=== PATIENT | female | born 1970 | race Caucasian/White ===

== ENCOUNTER 2018-02-04 15:19 | Observation (INO) | payer SELFPAY ==
[~2018-02-04 15:19] MED LIST: ACE3 PO; ACE500 PO; ALB17R INH; ALB6.7R INH; ALBU2.5V36 INH; AMOX-559 PO; CEPH500C24 PO; CYCL10TA29 PO; DICL-195 PO; DIPH-740 PO; DOXY150T6 PO; GUAI120L3 PO; HYDR-2946 PO; HYDR-317 PO; HYDR-3250 PO; HYDR-4309 PO; IBU600 PO; IBUP-2704 PO; IBUP-56 PO; IBUP600T22 PO; IBUP800T37 PO; KET10 PO; LOR5 PO; LOR5/325 PO; OXYC-854 PO; PANT40SU3 PO; PER PO; PHEN120S16 PO; PRE10 PO; PRED20TA6 PO; PROM-110 PO; RIZA10TA20 PO; SLEEPING MEDICATION PO; TRA50 PO; TRAM-420 PO; [UNRECOGNIZED DRUG - CODE] MC
[2018-02-04] MEDS ORDERED: NS(*) 0.9% 1000 ML BAG 1,000 ML IV ONE (15:31)
--- NOTE | 2018-02-04 15:31 | ER Report ---
History and Physical Time Seen By MD: 15:19 Hx. of Stated Complaint: PT REPORTS SEVERE PELVIC PAIN ONSET 1 HOUR AGO (TIMMARK Mary ) HPI/ROS CHIEF COMPLAINT: lower abdominal pain HISTORY OF PRESENT ILLNESS: Pt here for evaluation of lower abdominal pain which started about 1 hour ago. Pt is sharp and crampy. + nausea and vomiting. had a bm today and was normal. Pt has been urinating more frequently but not sure if it hurts. Pt perimenapausal and had a period last month. Pt denies . no diarrhea. no fevers. no back pain. no chest pain. REVIEW OF SYSTEMS: Constitutional: No fever, no chills. Eyes: No discharge. ENT: No sore throat. Cardiovascular: No chest pain, no palpitations. Respiratory: No cough, no shortness of breath. Gastrointestinal: + abdominal pain, +nausea, + vomiting. Genitourinary: No hematuria, + frequency Musculoskeletal: No back pain. Skin: No rashes. Neurological: No headache. (HUMBLEELMERALEXIMARK Mary ) Allergies: Coded Allergies: aspirin (Verified Adverse Reaction, Mild, NOSEBLEEDS, 09/19/17) latex (Verified Adverse Reaction, Mild, 09/19/17) Uncoded Allergies: MUSHROOM (Allergy, Severe, SWELLING, RESP DISTRESS, 05/23/12) Home Meds Active Scripts Albuterol Sulfate 0.083% (ALBUTEROL SULFATE 0.083%) 2.5 Mg/3 Ml Vial.neb, 2.5 MG INH Q4H Y for WHEEZING, #1 BOX 0 Refills Prov:JACK GREY MD 09/20/17 Discontinued Reported Medications Pantoprazole Sodium (PROTONIX) 40 Mg Granpkt.dr, 40 MG PO PRN, PACK 01/15/17 Discontinued Scripts Guaifenesin/Codeine Phosphate (Codeine-Guaifen 10-100 mg/5 ml) 120 Ml Liquid, 5 ML PO Q6-8H Y for COUGH, #120 ML 0 Refills Prov:JACK GREY MD 09/20/17 Prednisone (PREDNISONE) 20 Mg Tablet, 40 MG PO QDAY for 5 Days, #10 TAB Prov:JACK GREY MD 09/20/17 Past Medical/Surgical History Pmhx: migraines, asthma, reflux, cholelithiasis, toe fracture, alcohol abuse. Pshx: right wrist surgery, C-sections. (MARK DUMONT DO) Reviewed Nurses Notes: Yes Old Medical Records Reviewed: Yes (MARK DUMONT DO) Hx Smoking: Yes Smoking Status: Former Smoker Exposure to Second Hand Smoke?: No Hx Substance Use Disorder: No Hx Alcohol Use: Yes (MARK DUMONT DO) Constitutional Vital Sign - Last 24 Hours 02/04/18 02/04/18 02/04/18 02/04/18 15:19 15:25 15:26 15:30 Temp 97.5 Pulse ??? 65 Resp 20 B/P (MAP) 86/59 (68) 86/59 97/50 (66) Pulse Ox 99 O2 Delivery Room Air 02/04/18 02/04/18 02/04/18 02/04/18 15:34 15:49 16:00 16:04 Pulse 69 76 96 Resp 19 23 B/P (MAP) 108/63 (78) Pulse Ox 97 98 02/04/18 02/04/18 02/04/18 02/04/18 16:19 16:30 16:34 16:49 Pulse 93 ??? 109 Resp 14 20 B/P (MAP) ???/??? (6955) Pulse Ox 95 94 02/04/18 02/04/18 02/04/18 02/04/18 17:00 17:04 17:09 17:24 Pulse 102 105 108 Resp 11 12 0 B/P (MAP) 114/52 (72) Pulse Ox 96 97 82 02/04/18 02/04/18 02/04/18 02/04/18 17:30 17:39 17:54 18:00 Pulse 105 103 Resp 13 15 B/P (MAP) 114/44 (67) 116/48 (70) Pulse Ox 86 98 02/04/18 02/04/18 02/04/18 02/04/18 18:09 18:24 18:30 18:33 Pulse 110 105 Resp 18 B/P (MAP) 120/64 (82) Pulse Ox 93 O2 Flow Rate 1.0 02/04/18 02/04/18 02/04/18 02/04/18 18:39 18:54 19:00 19:05 Pulse ??? 111 110 Resp 19 15 B/P (MAP) 131/72 (91) Pulse Ox 97 98 02/04/18 02/04/18 02/04/18 02/04/18 19:20 19:30 19:35 19:50 Pulse 115 116 113 Resp 24 17 23 B/P (MAP) 123/74 (90) Pulse Ox 96 93 94 02/04/18 02/04/18 02/04/18 20:00 20:05 20:20 Pulse 110 108 Resp 9 20 B/P (MAP) 122/64 (83) Pulse Ox 95 93 Intake and Output 02/04/18 02/04/18 02/05/18 15:00 23:00 07:00 Intake Total 1500 ml Output Total 25 ml Balance 1475 ml (COLLIN JONES MD) Physical Exam General Appearance: The patient is alert, has no immediate need for airway protection and no signs of toxicity. Eyes: Pupils equal and round no pallor or injection, EOMI ENT: no pharyngeal erythema or exudates, Mucous membranes are moist Respiratory: There are no retractions, lungs are clear to auscultation. Cardiovascular: Regular rate and rhythm. pulses are equal and symmetrical Gastrointestinal: Abdomen is soft but diffusely tender, no masses, decreased bowel sounds, = guarding, no rigidity or rebound Neurological: Cranial nerves II-XII grossly intact, no sensory or motor loss Skin: Warm and dry, no rashes. Musculoskeletal: Neck is supple non tender, no vertebral tenderness Extremities are nontender, non swollen and have full range of motion. DIFFERENTIAL DIAGNOSIS: After history and physical exam differential diagnosis was considered for psbo, kidney stone, cystitis, diverticultis, uti (LAURORA,MARK V DO) Medical Decision Making Data Points Result Diagram: 02/04/18 1528 02/04/18 1528 Laboratory Hematology Test 02/04/18 15:28 02/04/18 15:52 02/04/18 17:17 Red Blood Count 5.14 M/uL (4.17-5.56) Mean Corpuscular Volume 85.3 fL (80.0-96.0) Mean Corpuscular Hemoglobin 29.5 pg (26.0-33.0) Mean Corpuscular Hemoglobin Concent 34.7 g/dL (32.0-36.0) Red Cell Distribution Width 13.7 % (11.5-14.5) Mean Platelet Volume 8.7 fL (7.2-11.1) Neutrophils (%) (Auto) 52.1 % (39.4-72.5) Lymphocytes (%) (Auto) 35.3 % (17.6-49.6) Monocytes (%) (Auto) 8.8 % (4.1-12.4) Eosinophils (%) (Auto) 3.3 % (0.4-6.7) Basophils (%) (Auto) 0.5 % (0.3-1.4) Nucleated RBC Relative Count (auto) 0.0 /100WBC Neutrophils # (Auto) 4.9 K/uL (2.0-7.4) Lymphocytes # (Auto) 3.3 K/uL (1.3-3.6) Monocytes # (Auto) 0.8 K/uL (0.3-1.0) Eosinophils # (Auto) 0.3 K/uL (0.0-0.5) Basophils # (Auto) 0.0 K/uL (0.0-0.1) Nucleated RBC Absolute Count (auto) 0.00 K/uL Sodium Level 139 mmol/L (137-145) Potassium Level 3.3 mmol/L (3.5-5.0) Chloride Level 97 mmol/L (98-107) Carbon Dioxide Level 28 mmol/L (22-31) Blood Urea Nitrogen 18 mg/dl (7-18) Creatinine 0.70 mg/dl (0.52-1.04) Glomerular Filtration Rate Calc > 60.0 Random Glucose 123 mg/dl (75-110) Calcium Level 9.7 mg/dl (8.4-10.2) Total Bilirubin 0.5 mg/dl (0.2-1.3) Aspartate Amino Transf (AST/SGOT) 16 U/L (0-35) Alanine Aminotransferase (ALT/SGPT) 30 U/L (0-56) Alkaline Phosphatase 100 U/L (0-126) Total Protein 7.8 gm/dl (6.3-8.2) Albumin 4.2 g/dl (3.5-5.0) Lipase 92 U/L (23-300) Human Chorionic Gonadotropin, Qual Negative (NEGATIVE) Urine Color Yellow Urine Clarity Slightly-cloudy Urine pH 7.0 pH (4.8-9.5) Urine Specific [place]more 1.026 Urine Protein Negative mg/dL (NEGATIVE) Urine Glucose (UA) Negative mg/dL (NEGATIVE) Urine Ketones Negative mg/dL (NEGATIVE) Urine Blood Negative (NEGATIVE) Urine Nitrite Negative (NEGATIVE) Urine Bilirubin Negative (NEGATIVE) Urine Urobilinogen 2.0 mg/dL (0.2-1.9) Urine Leukocyte Esterase Negative (NEGATIVE) Urine RBC 1 /HPF (0-2/HPF) Urine WBC <1 /HPF (0-5/HPF) Urine Squamous Epithelial Cells Many /LPF (NONE-FEW) Urine Bacteria Negative /HPF (NONE-FEW) Urine Mucus Few /HPF (NONE-FEW) Chemistry Test 02/04/18 15:28 02/04/18 15:52 02/04/18 17:17 White Blood Count 9.4 k/uL (4.5-11.0) Red Blood Count 5.14 M/uL (4.17-5.56) Hemoglobin 15.2 g/dL (12.0-16.0) Hematocrit 43.8 % (34.0-47.0) Mean Corpuscular Volume 85.3 fL (80.0-96.0) Mean Corpuscular Hemoglobin 29.5 pg (26.0-33.0) Mean Corpuscular Hemoglobin Concent 34.7 g/dL (32.0-36.0) Red Cell Distribution Width 13.7 % (11.5-14.5) Platelet Count 246 K/uL (150-450) Mean Platelet Volume 8.7 fL (7.2-11.1) Neutrophils (%) (Auto) 52.1 % (39.4-72.5) Lymphocytes (%) (Auto) 35.3 % (17.6-49.6) Monocytes (%) (Auto) 8.8 % (4.1-12.4) Eosinophils (%) (Auto) 3.3 % (0.4-6.7) Basophils (%) (Auto) 0.5 % (0.3-1.4) Nucleated RBC Relative Count (auto) 0.0 /100WBC Neutrophils # (Auto) 4.9 K/uL (2.0-7.4) Lymphocytes # (Auto) 3.3 K/uL (1.3-3.6) Monocytes # (Auto) 0.8 K/uL (0.3-1.0) Eosinophils # (Auto) 0.3 K/uL (0.0-0.5) Basophils # (Auto) 0.0 K/uL (0.0-0.1) Nucleated RBC Absolute Count (auto) 0.00 K/uL Glomerular Filtration Rate Calc > 60.0 Calcium Level 9.7 mg/dl (8.4-10.2) Total Bilirubin 0.5 mg/dl (0.2-1.3) Aspartate Amino Transf (AST/SGOT) 16 U/L (0-35) Alanine Aminotransferase (ALT/SGPT) 30 U/L (0-56) Alkaline Phosphatase 100 U/L (0-126) Total Protein 7.8 gm/dl (6.3-8.2) Albumin 4.2 g/dl (3.5-5.0) Lipase 92 U/L (23-300) Human Chorionic Gonadotropin, Qual Negative (NEGATIVE) Urine Color Yellow Urine Clarity Slightly-cloudy Urine pH 7.0 pH (4.8-9.5) Urine Specific Wetmore 1.026 Urine Protein Negative mg/dL (NEGATIVE) Urine Glucose (UA) Negative mg/dL (NEGATIVE) Urine Ketones Negative mg/dL (NEGATIVE) Urine Blood Negative (NEGATIVE) Urine Nitrite Negative (NEGATIVE) Urine Bilirubin Negative (NEGATIVE) Urine Urobilinogen 2.0 mg/dL (0.2-1.9) Urine Leukocyte Esterase Negative (NEGATIVE) Urine RBC 1 /HPF (0-2/HPF) Urine WBC <1 /HPF (0-5/HPF) Urine Squamous Epithelial Cells Many /LPF (NONE-FEW) Urine Bacteria Negative /HPF (NONE-FEW) Urine Mucus Few /HPF (NONE-FEW) Urinalysis Test 02/04/18 15:52 Urine Color Yellow Urine Clarity Slightly-cloudy Urine pH 7.0 pH (4.8-9.5) Urine Specific Wetmore 1.026 Urine Protein Negative mg/dL (NEGATIVE) Urine Glucose (UA) Negative mg/dL (NEGATIVE) Urine Ketones Negative mg/dL (NEGATIVE) Urine Blood Negative (NEGATIVE) Urine Nitrite Negative (NEGATIVE) Urine Bilirubin Negative (NEGATIVE) Urine Urobilinogen 2.0 mg/dL (0.2-1.9) Urine Leukocyte Esterase Negative (NEGATIVE) Urine RBC 1 /HPF (0-2/HPF) Urine WBC <1 /HPF (0-5/HPF) Urine Squamous Epithelial Cells Many /LPF (NONE-FEW) Urine Bacteria Negative /HPF (NONE-FEW) Urine Mucus Few /HPF (NONE-FEW) (COLLIN JONES MD) Microbiology Microbiology Date/Time Source Procedure Growth Status 02/04/18 17:17 Cervical Wet Prep - Final Complete (COLLIN JONES MD) EKG/Imaging Imaging EXAMINATION: Transvaginal pelvic ultrasound with duplex Doppler evaluation 5:20 PM HISTORY: LLQ pain;R/o torsion.; LMP: 01/07/2018 COMPARISON STUDIES: none. FINDINGS: Uterus: 8.5 x 4.9 x 4.1 cm Myometrium: negative Endometrium: Negative. 4 mm thickness. Cervix: negative Ovaries: right ovary 3.5 x 2.8 x 2.9 cm, left ovary but I think is probably the left ovary on the images obtained measures 3.5 x 2.7 x 1.9 cm, both normal Blood flow is documented in each ovary by Doppler ultrasound. On the left there is only color flow image showing flow but no B-mode tracing within the heart of the ovary but only along the periphery Adnexa: Fluid-filled tubular structure immediately adjacent to the left ovary corresponding with that shown by the CT. With color Doppler there is flow along the margins of this although was not clearly a complete hypervascular inflamed tube. Slight adnexal varices are demonstrated on the right. Free pelvic fluid: None significant IMPRESSION: 1. Dilated fallopian tube on the left with vascular flow in the wall raising concern for pyosalpinx. If the patient does not have fever or white count this may be a noninfected hydrosalpinx. 2. Color Doppler does appear to show flow within the left ovary which is not enlarged although a good B-mode tracing of flow in the central portion of the ovary was not acquired. Report Dictated By: Jesus Aguiar MD at 02/04/2018 6:31 PM (COLLIN JONES MD) ED Course/Re-evaluation Clinical Indication for ER IV: IV Access ED Course Check labs, ct and give fluids and fentanyl 02/04/2018 5:10:12 pm Pts labs stable. Pts CT shows possible TOA. will perform a pelvic after medicating since pts pain is returning. Pt denies any hx of pelvic infections PELVIC: skant dark bloody mucus in vault; Neg CMT, + Left adenxa tenderness, Neg right adnexa tenderness; no purulant discharge from os (MARK DUMONT DO) Clinical Indication for ER IV: Hydration, IV Access ED Course I assumed care of this patient from Dr. Dumont at shift change. Left lower abdominal pain with CT scan positive for thickened left fallopian tube concerning for tuboovarian abscess. Sudden onset makes this worrisome for torsion. Ultrasound being done during signout. 02/04/2018 7:00:26 pm: Ultrasound report is available as noted above. After receiving this report, I called and spoke with Dr. Shah, [employer], and discussed these results with her. The patient is still in quite a bit of pain, pain is increased now and she is tachycardic so a dose of Dilaudid 1 mg IV was given[address] Dr[address] Shah has accepted the patient for admission. She came to the ER to evaluate the patient. Decision to Disposition Date: Feb 04, 2018 Decision to Disposition Time: 19:25 (COLLIN JONES MD) Depart Departure Latest Vital Signs Vital Signs Date Time Temp Pulse Resp B/P (MAP) Pulse Ox O2 Delivery O2 Flow Rate FiO2 02/04/18 20:20 108 20 93 02/04/18 20:00 122/64 (83) 02/04/18 18:33 1.0 02/04/18 15:26 97.5 Room Air (COLLIN JONES MD) Impression: Primary Impression: Abdominal pain Condition: Condition Unchanged Disposition: Admitted from ER Referrals: TITI MATSON PA-C (PCP) Problem Qualifiers Primary Impression: Abdominal pain Abdominal location: lower abdomen, unspecified Qualified Codes: R10.30 - Lower abdominal pain, unspecified MARK DUMONT DO Feb 04, 2018 15:31 COLLIN JONES MD Feb 04, 2018 18:07
[2018-02-04] MEDS ORDERED: ONDANSETRON 4 MG/2 ML VIAL IVP ONE (15:35)
[2018-02-04] MEDS ORDERED: fentaNYL CITR 100 MCG/2 ML AMP IVP ONE ×2 (15:35→17:05)
[2018-02-04 15:46] LABS: PLATELET COUNT, AUTOMATED 246 K/uL (150-450)
[2018-02-04] MEDS ORDERED: IOPAMIDOL 76% 75 ML INFUS BTL 75 ML ONE (15:47)
--- NOTE | 2018-02-04 17:04 | RADIOLOGY IMAGING REPORT ---
FACILITY: [facility] - [place] PATIENT NAME: Mary Willis : 1970 MR: [id number] V: [id number] EXAM DATE: ORDERING PHYSICIAN: MARK DUMONT TECHNOLOGIST: Location: [facility] Patient: Mary Willis : 1970 Visit/Account:[id number] Date of Sevice: 02/04/2018 EXAMINATION: CT Abdomen and Pelvis With Contrast 02/04/2018 3:31 PM HISTORY: lower abdominal pain/vomiting TECHNIQUE: Spiral scan was through the abdomen and pelvis during injection of nonionic iodinated in travenous contrast. Contrast: 75 mL of IV Isovue 370. One of the following dose optimization techniques was utilized in the performance of this exam: Autom ated exposure control; adjustment of the mA and/or kV according to the patient's size; or use of an i terative reconstruction technique. Specific details can be referenced in the facility's radiology C T exam operational policy. COMPARISON STUDIES: 05/19/2008. FINDINGS: Liver / biliary: Prior cholecystectomy. Pancreas: negative Spleen: negative Adrenal glands: negative Kidneys / retroperitoneum: negative Pelvic structures: Left lobe into this dilated nearly 3 cm and somewhat thick-walled. Left ovary i s unremarkable. No right adnexal pathology. Minimal free fluid in the cul-de-sac. Bowel / peritoneum / mesenteries: Mild diverticulosis of the distal colon. No acute focal inflammatio n. Normal appendix. Vessels: negative Musculoskeletal / Body wall: Sacroiliitis. Small sclerotic focus in the posterior right iliac bone wa s not evident previously but is still likely an incidental bone island. Incidental partial spina bifi da occulta at S1. Lymph node assessment: negative Lower chest: negative IMPRESSION: 1. Dilated left fallopian tube with thick wall suspicious for TOA. 2. No other significant acute finding. Report Dictated By: Jesus Aguiar MD at 02/04/2018 4:51 PM Report E-Signed By: Jesus Aguiar MD at 02/04/2018 4:59 PM WSN:[id number]
[2018-02-04] MEDS ORDERED: NS(*) 0.9% 500 ML BAG 500 ML IV ONE (17:30)
--- NOTE | 2018-02-04 18:45 | RADIOLOGY IMAGING REPORT ---
FACILITY: [facility] - [place] PATIENT NAME: Mary Willis : 1970 MR: [id number] V: [id number] EXAM DATE: ORDERING PHYSICIAN: MARK DUMONT TECHNOLOGIST: Location: [facility] Patient: Mary Willis : 1970 Visit/Account:[id number] Date of Sevice: 02/04/2018 EXAMINATION: Transvaginal pelvic ultrasound with duplex Doppler evaluation 02/04/2018 5:20 PM HISTORY: LLQ pain;R/o torsion.; LMP: 01/07/2018 COMPARISON STUDIES: none. FINDINGS: Uterus: 8.5 x 4.9 x 4.1 cm Myometrium: negative Endometrium: Negative. 4 mm thickness. Cervix: negative Ovaries: right ovary 3.5 x 2.8 x 2.9 cm, left ovary but I think is probably the left ovary on the calli ges obtained measures 3.5 x 2.7 x 1.9 cm, both normal Blood flow is documented in each ovary by Doppler ultrasound. On the left there is only color flow im age showing flow but no B-mode tracing within the heart of the ovary but only along the periphery Adnexa: Fluid-filled tubular structure immediately adjacent to the left ovary corresponding with that shown by the CT. With color Doppler there is flow along the margins of this although was not clearly a complete hypervascular inflamed tube. Slight adnexal varices are demonstrated on the right. Free pelvic fluid: None significant IMPRESSION: 1. Dilated fallopian tube on the left with vascular flow in the wall raising concern for pyosalpinx. If the patient does not have fever or white count this may be a noninfected hydrosalpinx. 2. Color Doppler does appear to show flow within the left ovary which is not enlarged although a good B-mode tracing of flow in the central portion of the ovary was not acquired. Report Dictated By: Jesus Aguiar MD at 02/04/2018 6:31 PM Report E-Signed By: Jesus Aguiar MD at 02/04/2018 6:41 PM WSN:[id number]
[2018-02-04] MEDS ORDERED: HYDROmorphone* 1 MG/ML 1 MG/ML ML IVP ONE (19:10)
--- NOTE | 2018-02-04 20:23 | History & Physical ---
History of Present Illness Age of Patient: 47 : 2 Para or TPAL: 2 Chief Complaint sudden onset lower abdominal pain at approximately 2pm today History of Present Illness Mrs. Willis is a 47yo , LMP 12/2017, unsure date, urine hcg negative, who presents to ED with complaint of acute onset lower abdominal pain at 2PM today. She reports she was sitting waiting for her son's school bus, when she suddenly had midline pelvic pain in the area of her mons-pubis. She reports that the pain was sharp in nature and 10/10 on a one to 10 scale. She reports that the pain continued and she thought that urinating might help. She tried this, and was able to urinate, but the pain persisted. She then had an episode of nausea and emesis. She called her and asked him to bring her to the ER for evaluation. Mrs. Willis reports she is and monogamous. She has no known history of STIs. She has not had routine gynecologic care, cannot recall her last cervical cancer evaluation, but does not have history of abnormal paps. She denies vaginal bleeding or discharge. She denies fevers/chills. She reports having a normal bowel movement today and she is passing gas without difficulty. Mrs. Goyal has had two deliveries. She has had a cholecystectomy. She has had no other surgeries. History Obstetrical History: FT C/S x 2, uncomplicated pregnancies Past Medical History: Migraine R wrist surgery obesity Allergies: Coded Allergies: aspirin (Verified Adverse Reaction, Mild, NOSEBLEEDS, 09/19/17) latex (Verified Adverse Reaction, Mild, 09/19/17) Uncoded Allergies: MUSHROOM (Allergy, Severe, SWELLING, RESP DISTRESS, 05/23/12) Social History: , monogamous. Has 15yo child. Med Rec Home Meds Active Scripts Albuterol Sulfate 0.083% (ALBUTEROL SULFATE 0.083%) 2.5 Mg/3 Ml Vial.neb, 2.5 MG INH Q4H Y for WHEEZING, #1 BOX 0 Refills Prov:JACK GREY MD 09/20/17 Discontinued Reported Medications Pantoprazole Sodium (PROTONIX) 40 Mg Granpkt.dr, 40 MG PO PRN, PACK 01/15/17 Discontinued Scripts Guaifenesin/Codeine Phosphate (Codeine-Guaifen 10-100 mg/5 ml) 120 Ml Liquid, 5 ML PO Q6-8H Y for COUGH, #120 ML 0 Refills Prov:JACK GREY MD 09/20/17 Prednisone (PREDNISONE) 20 Mg Tablet, 40 MG PO QDAY for 5 Days, #10 TAB Prov:JACK GREY MD 09/20/17 Review of Systems Constitutional: No Fever, No Weight Loss, No Weight Gain, No Chills, No Night Sweats, No Other Neurological: No Syncope, No Confusion, No Weakness, No Dizziness, No Slurred Speech, No Other Eyes: No Vision Change, No Loss of Vision, No Photophobia, No Other ENT: No Hearing Loss, No Sinus Congestion, No Sore Throat, No Ear Ache, No Tinnitus, No Other Cardiovascular: No Chest Pain, No Palpitations, No Orthostatic Hypotension, No Other Respiratory: No Shortness of Breath, No Cough, No Wheezing, No Other Gastrointestinal: Nausea, Vomiting, Abdominal Pain (lower abdominal pain) Genitourinary: No Dysuria, No Hematuria, No Urinary Incontinence, No Other Musculoskeletal: No Pain, No Sprain, No Strain, No Impaired Mobility, No Other Psychiatric: No Depression, No Anxiety, No Other Exam General Exam Vital Signs Vital Signs Date Time Temp Pulse Resp B/P (MAP) Pulse Ox O2 Delivery O2 Flow Rate FiO2 02/04/18 19:00 131/72 (91) 02/04/18 18:54 111 19 97 02/04/18 18:33 1.0 02/04/18 15:26 97.5 Room Air General Apperance: Alert/Awake/No Acute Distress (sitting up, appears uncomfortable) Neuro: No Gross deficits Eyes: Normal Extraocular Movement & Vison Cardiovascular: Regular Rate and Rhythm Respiratory: Clear to Auscultation Abdomen: Soft, Non-Tender, Non-Distended (no rebound no gaurding) Extremities: No Cyanosis,Clubbing or Edema Integumentary: Skin Intact without Lesions or Rash Psychological: Alert & Oriented X3, Appropriate Mood & Affect Medical Decision Making Data Points Result Diagram: 02/04/18 1528 02/04/18 1528 test negative Imaging Ultrasound/Imaging Ovaries appear normal bilaterally, no enlargement, mass or obvious edema. L hydrosalpinx vs. pyosalpinx. Vascular flow demonstrated to both ovaries. Pre-Admit Course ED Medication Dilaudid Medical Record Review: Yes VTE Prophylasis: Adult Deep Vein Thrombosis/Pulmonary: No Pharmacological Contraindicati: Surgical Contraindication Mechanical Contraindications: Pt at Low Risk for VTE Assessment and Plan Problems: (1) Abdominal pain Status: Acute Assessment & Plan: 47yo who presents with acute onset lower abdominal pain , nausea and emesis. No fever, normal WBC, no e/o cystitis or nephrolithiasis. Only finding on imaging is dilated L fallopian tube -- hydro vs. pyosalpinx. No clinical evidence of PID -- no purulent cervical discharge, no CMT, no elevation in WBC. Genital cultures pending. Abdomen is mildly tender, no gaurding, no rebound. Imaging not consistent with adnexal torsion, good blood flow both ovaries. Given patient's level of pain, opt to admit for observation , pain management, re-imaging of ovaries with ultrasound. Discussed the possibility of ovarian torsion and possibility of laparoscopy with the patient and her , should her clinical picture become concerning for torsion. All questions answered. Problem Qualifiers (1) Abdominal pain: Abdominal location: lower abdomen, unspecified Qualified Codes: R10.30 - Lower abdominal pain, unspecified ZAN KELLEY MD Feb 04, 2018 20:22
[2018-02-04] MEDS ORDERED: ONDANSETRON 4 MG/2 ML VIAL IVP PRN (20:25)
[2018-02-04] MEDS ORDERED: FLUSH 10 ML SYR IVP PRN (20:25)
[2018-02-04] MEDS ORDERED: LIDOCAINE/SOD BICARB 8.4% SYR SC PRN (20:25)
[2018-02-04] MEDS ORDERED: HYDROmorphone HCL 2 MG/ML SDV IVP PRN (20:25)
[2018-02-04] MEDS ORDERED: KETOROLAC 30 MG/ML VIAL IVP ONE (20:35)
[2018-02-04] MEDS ORDERED: NALOXONE HCL 0.4 MG/ML VIAL IVP ONE (20:40)
[2018-02-04 20:50] VITALS: BP 122/61
[2018-02-04] MEDS ORDERED: POTASSIUM CHL 20 MEQ TABCR PO ONE (20:50)
[2018-02-04] MEDS: DLR(*) 1000 ML BAG 1,000 ML IV SCH (21:21)
[2018-02-05 03:35] VITALS: BP 99/58
[2018-02-05] MEDS: KETOROLAC 15 MG/ML VIAL IVP PRN ×4 (04:01→22:42)
[2018-02-05] MEDS ORDERED: IBUP800T37 PO (04:10)
[2018-02-05] MEDS ORDERED: PSEU120T69 PO (04:11)
[2018-02-05 04:41] LABS: PLATELET COUNT, AUTOMATED 187 K/uL (150-450)
[2018-02-05 05:20] VITALS: BP 109/56
[2018-02-05] MEDS: DLR(*) 1000 ML BAG 1,000 ML IV SCH ×2 (06:37→16:13)
[2018-02-05 08:04] VITALS: BP 109/59
[2018-02-05] MEDS: PANTOPRAZOLE SOD 40 MG TABEC PO SCH (08:44)
--- NOTE | 2018-02-05 10:27 | OB/GYN Progress Note ---
OB Subjective Progress Notes Subjective Mrs. Goyal reports she slept well all night. She received only toradol overnight, no further dilaudid, and did well. Her pain remains at 5-6/10 and is diffuse lower abdominal pain. She reports she has had no further nausea/emesis. She denies fever/chills. She is voiding and passing flatus without difficulty. On further questioning she reports that she has had a brownish vaginal discharge for the past few months, no odor, continuous. GI: POS Flatus, NEG Nausea, NEG Vomiting, NEG Bowel Movement : Voiding Well Pain: Moderate, Using IV Pain Meds Neurological: No Headache, No Other OB Objective Physical Exam Vital Signs Date Time Temp Pulse Resp B/P (MAP) Pulse Ox O2 Delivery O2 Flow Rate FiO2 02/05/18 08:04 97.6 70 17 109/59 (76) 94 Room Air 02/05/18 06:40 0.5 Intake and Output 02/06/18 07:00 # Voids 1 General Appearance: Alert/Awake/No Acute Distress Neurological: No Gross deficits Eyes: Normal Extraocular Movement & Vison Cardiovascular: Regular Rate and Rhythm Respiratory: Clear to Auscultation (soft, good bowel sounds, diffusely tender in lower abdomen, no rebound or gaurding) : Other (bimanual exam reveals tender uterus and adnexa, L>R) Extremities: No Cyanosis,Clubbing or Edema Integumentary: Skin Intact without Lesions or Rash Psychological: Alert & Oriented X3, Appropriate Mood & Affect Result Diagram: 02/05/18 04302/05/18 043 Assessment and Plan Problems: (1) Abdominal pain Status: Acute Assessment & Plan: 47yo HOD 1 who presented with acute onset lower abdominal pain, nausea and emesis. No fever, normal WBC, no e/o cystitis or nephrolithiasis. Only finding on imaging was dilated L fallopian tube -- hydro vs. pyosalpinx. Repeat ultrasound this am shows good blood flow (arterial and vascular) in both ovaries, and again concern for L pyosalpinx. Pelvic exam this morning significant for tenderness -- mild CMT. Given pelvic pain, tenderness on exam, and finding of pyosalpinx on ultrasound will treat for presumptive PID. Favor parenteral treatment given concern for pyosalpinx and patient's pain level on presentation. All questions were answered and diagnosis discussed in detail with patient and her . (2) Pelvic inflammatory disease, female Status: Acute Assessment & Plan: 47yo HOD 1 who presented with acute onset lower abdominal pain, nausea and emesis. No fever, normal WBC, no e/o cystitis or nephrolithiasis. Only finding on imaging was dilated L fallopian tube -- hydro vs. pyosalpinx. Repeat ultrasound this am shows good blood flow (arterial and vascular) in both ovaries, and again concern for L pyosalpinx. Pelvic exam this morning significant for tenderness -- mild CMT. Given pelvic pain, tenderness on exam, and finding of pyosalpinx on ultrasound will treat for presumptive PID. Favor parenteral treatment given concern for pyosalpinx and patient's pain level on presentation. All questions were answered and diagnosis discussed in detail with patient and her . -cefoxitin 2g IV Q6 -doxycycline 100mg po bid -flagyl 500mg po tid given concern for pyosalpinx -continue pain management with toradol, dilaudid for breakthrough -may have regular diet Problem Qualifiers (1) Abdominal pain: Abdominal location: lower abdomen, unspecified Qualified Codes: R10.30 - Lower abdominal pain, unspecified ZAN KELLEY MD Feb 05, 2018 10:27
--- NOTE | 2018-02-05 10:29 | RADIOLOGY IMAGING REPORT ---
[place] [facility] [place] NAME[place] Mary Willis : 1970 MR: [id number] V: [id number] EXAM DATE: ORDERING PHYSICIAN: ZAN KELLEY TECHNOLOGIST: Location: [facility] [place] Patient: Mary Willis : 1970 Visit/Account:[id number] Date of Sevice: 02/05/2018 PELVIC HISTORY: pelvic pain, L hydrosalpinx EXAMINATION: Transabdominal and transvaginal pelvic ultrasound with duplex Doppler evaluation. HISTORY: Left lower quadrant pain COMPARISON: None. FINDINGS: Uterus: 8.5 x 4.9 x 4.1 cm Myometrium: negative Endometrium: Endometrium measures approximately 1 mm in greatest thickness. No fluid. No endometrial mass lesion. Cervix: negative Ovaries: Right ovary measures 3.1 x 2.7 x 2.7 cm in size. No right adnexal mass lesion. Left ovary measures 3.1 x 1.7 x 2.3 cm. There is a complex tubular fluid-filled structure in the left adnexa. This is consistent with a hydrosalpinx. Hydrosalpinx is not excluded. Blood flow is documented in each ovary by duplex Doppler ultrasound. Adnexa: negative Free pelvic fluid: Mild amount of fluid within the pelvis. IMPRESSION: 1. No significant interval change in appearance the ultrasound when compared to the previous day's st ud. What appears to be a dilated left fallopian tube identified. Hydrosalpinx suggested. Pyosalpinx not excluded. Recommend clinical correlation and appropriate follow-up Report Dictated By: Andrez Chong MD at 02/05/2018 10:16 AM Report E-Signed By: Andrez Chong MD at 02/05/2018 10:25 AM WSN:[id number]
[2018-02-05] MEDS: DOXYCYCLINE HYCL 100 MG TAB PO SCH ×2 (11:17→20:45)
[2018-02-05] MEDS: METRONIDAZOLE 500 MG TABLET PO SCH ×3 (11:17→20:45)
[2018-02-05] MEDS: NS 0.9% IVPB SCH ×2 (11:34→17:25)
[2018-02-05] MEDS: CEFOXITIN SOD IVPB SCH ×2 (11:34→17:25)
[2018-02-05] MEDS ORDERED: cefOXitin/DEX(*) 2GM/50ML PREM 50 ML IVPB SCH (12:00)
[2018-02-05 12:38] VITALS: BP 114/63
[2018-02-05 19:20] VITALS: BP 108/72
[2018-02-05 22:30] VITALS: BP 106/58
[2018-02-06] MEDS ORDERED: DOXYCYCLINE HYCL 100 MG TAB PO SCH ×2
[2018-02-06] MEDS ORDERED: METRONIDAZOLE 500 MG TABLET PO SCH ×2
[2018-02-06] MEDS: CEFOXITIN SOD IVPB SCH ×2 (00:30→05:50)
[2018-02-06] MEDS: NS 0.9% IVPB SCH ×2 (00:30→05:50)
[2018-02-06] MEDS: DLR(*) 1000 ML BAG 1,000 ML IV SCH (03:10)
[2018-02-06 05:45] VITALS: BP 106/66
[2018-02-06 07:05] VITALS: BP 115/68
[2018-02-06] MEDS: PANTOPRAZOLE SOD 40 MG TABEC PO SCH (09:00)
[2018-02-06] MEDS: METRONIDAZOLE 500 MG TABLET PO SCH (09:00)
[2018-02-06] MEDS: DOXYCYCLINE HYCL 100 MG TAB PO SCH (09:00)
[2018-02-06 09:30] VITALS: BP 115/67
[2018-02-06] MEDS ORDERED: DOXY-179 PO (09:36)
[2018-02-06] MEDS ORDERED: METR-159 PO (09:36)
--- NOTE | 2018-02-06 09:55 | OB/GYN Progress Note ---
OB Subjective Progress Notes Subjective Ms. Willis reports that her pain has improved significantly. She denies fevers/chills, she denies SOB/CP. She has no other complaints. GI: POS Flatus, POS Bowel Movement, NEG Nausea, NEG Vomiting : Voiding Well Pain: Mild, Tolerating PO Pain Meds, Using IV Pain Meds Neurological: No Headache, No Other Eyes: No Visual Disturbances OB Objective Physical Exam Vital Signs Date Time Temp Pulse Resp B/P (MAP) Pulse Ox O2 Delivery O2 Flow Rate FiO2 02/06/18 07:35 96 02/06/18 07:05 98.0 67 16 115/68 (84) Nasal Cannula 0.5 General Appearance: Alert/Awake/No Acute Distress Neurological: No Gross deficits Eyes: Normal Extraocular Movement & Vison Cardiovascular: Regular Rate and Rhythm Respiratory: Clear to Auscultation (soft, good bowel sounds, diffusely tender in lower abdomen, no rebound or gaurding) : Other (bimanual exam reveals tender uterus and adnexa, L>R) Extremities: No Cyanosis,Clubbing or Edema Integumentary: Skin Intact without Lesions or Rash Psychological: Alert & Oriented X3, Appropriate Mood & Affect Result Diagram: 02/05/18 0432 02/05/18 043 Assessment and Plan Problems: (1) Abdominal pain Status: Acute Assessment & Plan: 47yo HOD 2 who presented with acute onset lower abdominal pain, nausea and emesis. No fever, normal WBC, no e/o cystitis or nephrolithiasis. Only finding on imaging was dilated L fallopian tube -- hydro vs. pyosalpinx. Repeat ultrasound showed good blood flow (arterial and vascular) in both ovaries, again concerns for pyosalpinx. Patient treated for presumptive PID. Symptoms improved significantly today. (2) Pelvic inflammatory disease, female Status: Acute Assessment & Plan: 47yo HOD 2 who presented with acute onset lower abdominal pain, nausea and emesis. No fever, normal WBC, no e/o cystitis or nephrolithiasis. Only finding on imaging was dilated L fallopian tube -- hydro vs. pyosalpinx. Now s/p 48 hours of abx and symptoms improved significantly. -Will allow discharge home on two weeks of PO abx. -F/U next week at [facility]. -all questions answered Problem Qualifiers (1) Abdominal pain: Abdominal location: lower abdomen, unspecified Qualified Codes: R10.30 - Lower abdominal pain, unspecified ZAN KELLEY MD Feb 06, 2018 09:55
--- NOTE | 2018-02-06 09:56 | OB/GYN Discharge Summary ---
Discharge Summary Reason for Hosp/Final Diag: (1) Abdominal pain Status: Acute Hospital Course & Plan: 47yo HOD 2 who presented with acute onset lower abdominal pain, nausea and emesis. No fever, normal WBC, no e/o cystitis or nephrolithiasis. Only finding on imaging was dilated L fallopian tube -- hydro vs. pyosalpinx. Repeat ultrasound showed good blood flow (arterial and vascular) in both ovaries, again concerns for pyosalpinx. Patient treated for presumptive PID. Symptoms improved significantly today. (2) Pelvic inflammatory disease, female Status: Acute Hospital Course & Plan: 47yo HOD 2 who presented with acute onset lower abdominal pain, nausea and emesis. No fever, normal WBC, no e/o cystitis or nephrolithiasis. Only finding on imaging was dilated L fallopian tube -- hydro vs. pyosalpinx. Now s/p 48 hours of abx and symptoms improved significantly. -Will allow discharge home on two weeks of PO abx. -F/U next week at [facility]. -all questions answered Lates Vital Signs Vital Signs Date Time Temp Pulse Resp B/P (MAP) Pulse Ox O2 Delivery O2 Flow Rate FiO2 02/06/18 07:35 96 02/06/18 07:05 98.0 67 16 115/68 (84) Nasal Cannula 0.5 Weight (Pounds): 196 Result Diagram: 02/05/1843102/05/18431 Condition: Improved Discharge: Home Home Meds Active Scripts Metronidazole (METRONIDAZOLE) 250 Mg Tablet, 2 TAB PO TID for 14 Days, #78 TAB Prov:ZAN KELLEY MD 02/06/18 Doxycycline Hyclate (DOXYCYCLINE HYCLATE) 100 Mg Tablet, 1 EACH PO BID for 14 Days, #28 TAB Prov:ZAN KELLEY MD 02/06/18 Albuterol Sulfate 0.083% (ALBUTEROL SULFATE 0.083%) 2.5 Mg/3 Ml Vial.neb, 2.5 MG INH Q4H Y for WHEEZING, #1 BOX 0 Refills Prov:JACK GREY MD 09/20/17 Reported Medications Pseudoephedrine Hcl (SUDAFED 12 HOUR) 120 Mg Tablet.er, 120 MG PO Y for CONGESTION 02/05/18 Ibuprofen (IBUPROFEN) 800 Mg Tablet, 1 TAB PO Q8H for PAIN, TAB 02/05/18 Discontinued Reported Medications Pantoprazole Sodium (PROTONIX) 40 Mg Granpkt.dr, 40 MG PO PRN, PACK 01/15/17 Discontinued Scripts Guaifenesin/Codeine Phosphate (Codeine-Guaifen 10-100 mg/5 ml) 120 Ml Liquid, 5 ML PO Q6-8H Y for COUGH, #120 ML 0 Refills Prov:JACK GREY MD 09/20/17 Prednisone (PREDNISONE) 20 Mg Tablet, 40 MG PO QDAY for 5 Days, #10 TAB Prov:JACK GREY MD 09/20/17 [facility] [phone] Follow up in: 5-7 days Discharge Diet: As Tolerates Discharge Activity: As Tolerates Problem Qualifiers (1) Abdominal pain: Abdominal location: lower abdomen, unspecified Qualified Codes: R10.30 - Lower abdominal pain, unspecified ZAN KELLEY MD Feb 06, 2018 09:56
[2018-02-06] MEDS ORDERED: metroNIDAZOLE 250 MG TAB TH 2 TAB/BOTTLE PO SCH (14:00)
[2018-02-06] MEDS ORDERED: DOXYCYCLINE HYCL 100 MG TAB TH PO SCH (21:00)
== END 2018-02-06 09:36 | disposition home or self-care (01) ==
LOC: ER 15:19 → INTOOBSV 20:20 → OB 20:20
PROVIDERS: ADMIT Obstetrics & Gynecology; ATTEND Obstetrics & Gynecology
DX: N73.9 Female pelvic inflammatory disease, unspecified (principal); R10.30 Lower abdominal pain, unspecified
CPT/HCPCS: 36415; 74177; 76830; 76856; 81001; 83690; 84703; 85025; 87088; 87210; 87491; 87591; 96361; 96374; 96375; 96376; 99284; A4353; G0378; J0694; J1170; J1885; J2405; J3010; J7030; J7040; J7050; Q9967; 82040; 82247; 82310; 82374; 82435; 82565; 82947; 84075; 84132; 84155; 84295; 84450; 84460; 84520

== ENCOUNTER 2018-05-26 08:48 | Emergency (ER) | payer SELFPAY ==
[~2018-05-26 08:48] MED LIST changes: +DOXY-179 PO; +METR-159 PO; +PSEU120T69 PO
[2018-05-26] MEDS ORDERED: APAP/HYDROCODONE 325/5 TAB PO ONE (09:25)
--- NOTE | 2018-05-26 09:41 | ER Report ---
History and Physical Time Seen By MD: 09:15 Hx. of Stated Complaint: PATIENT HAS HAD ARM PAIN SINCE WEDNESDAY; PT STATES THAT IT HAS GOTTEN WORSE; LAST WEDNESDAY PT HAD A BLOODY NOSE ON "ONE SIDE" HPI/ROS CHIEF COMPLAINT: shoulder pain HISTORY OF PRESENT ILLNESS: This is a 48 year old female. She is having some left shoulder pain. Present since Wednesday. No injury. No history of shoulder problems. Diffuse pain, worse with movement. Into shoulder blade and neck. No fevers or chills. No rashes. No numbness in the arm. Shooting pain into shoulder and down arm. No cough or shortness of breath. No chest pain. No pain in the back. Allergies: Coded Allergies: aspirin (Verified Adverse Reaction, Mild, NOSEBLEEDS, 09/19/17) latex (Verified Adverse Reaction, Mild, 09/19/17) Uncoded Allergies: MUSHROOM (Allergy, Severe, SWELLING, RESP DISTRESS, 05/23/12) Home Meds Active Scripts Hydrocodone Bit/Acetaminophen (HYDROCODON-ACETAMINOPHEN 5-325) 1 Each Tablet, 1 EACH PO Q4H Y for PAIN, #8 TAB 0 Refills Prov:COLLIN JONES MD 05/26/18 Albuterol Sulfate 0.083% (ALBUTEROL SULFATE 0.083%) 2.5 Mg/3 Ml Vial.neb, 2.5 MG INH Q4H Y for WHEEZING, #1 BOX 0 Refills Prov:JACK GREY MD 09/20/17 Reported Medications Pseudoephedrine Hcl (SUDAFED 12 HOUR) 120 Mg Tablet.er, 120 MG PO Y for CONGESTION 02/05/18 Ibuprofen (IBUPROFEN) 800 Mg Tablet, 1 TAB PO Q8H for PAIN, TAB 02/05/18 Reviewed Nurses Notes: Yes Hx Smoking: Yes Smoking Status: Former Smoker Exposure to Second Hand Smoke?: No Hx Substance Use Disorder: No Hx Alcohol Use: Yes (OCC) Constitutional Vital Sign - Last 24 Hours 05/26/18 05/26/18 05/26/18 05/26/18 08:59 09:18 09:48 10:00 Pulse 89 B/P (MAP) 109/58 (75) 102/52 (69) Pulse Ox 90 93 05/26/18 05/26/18 10:18 10:30 Pulse 75 B/P (MAP) 106/71 (83) Pulse Ox 92 Physical Exam General Appearance: Alert, mild distress due to pain, better if not moving. Holding arm at her side. Neck: Supple. No lymphadenopathy or thyromegaly. There is some pain with palpation of the paraspinous muscles and scm. Respiratory: Lungs clear, breathing easily. Cardiac: regular rate and rhythm. Normal pulses and capillary refill. Musculoskeletal: Shoulder with pain diffusely throughout. Tender over humerus, scapula and trapezius areas. Mild tenderness over proximal humerus. Pain worsens with active, mild with passive range of motion. Positive impingement signs. No pain in midline neck or back with palpation. Skin: No rashes or lesions. DIFFERENTIAL DIAGNOSIS: After history and physical exam differential diagnosis was considered for shoulder pain, appears to be rotator cuff tendonitis/ inflammation. Medical Decision Making EKG/Imaging Imaging EXAMINATION: Left shoulder, 3 views 05/26/2018 9:21 AM HISTORY: Shoulder and neck pain. Arm numbness. COMPARISON: 06/13/2017 FINDINGS: Cortical thickening along the distal shaft of the clavicle is unchanged back to 10/02/2015 suggestive of old injury. Acromioclavicular articulation is normal. Subacromial joint space is well-preserved and glenohumeral articulations negative. No acute bony finding in the shoulder. IMPRESSION: No acute abnormality. Likely old healed distal left clavicular fracture. Report Dictated By: Jesus Aguiar MD at 05/26/2018 10:13 AM ED Course/Re-evaluation ED Course Based on exam and negative x-ray, this appears to rotator cuff injury or tendonitis. Recommended anti-inflammatory and conservative management. Recommended follow-up with orthopedic surgery or with her primary care in the next week. Sling, ice, range of motion, and relative rest. Decision to Disposition Date: May 26, 2018 Decision to Disposition Time: 11:30 Depart Departure Latest Vital Signs Vital Signs Date Time Temp Pulse Resp B/P (MAP) Pulse Ox O2 Delivery O2 Flow Rate FiO2 05/26/18 10:30 106/71 (83) 05/26/18 10:18 75 92 Impression: Primary Impression: Rotator cuff injury Condition: Improved Disposition: HOME OR SELF-CARE Referrals: TITI MATSON PA-C (PCP) New Scripts Hydrocodone Bit/Acetaminophen (HYDROCODON-ACETAMINOPHEN 5-325) 1 Each Tablet 1 EACH PO Q4H Y for PAIN, #8 TAB 0 Refills Prov: COLLIN JONES MD 05/26/18 Patient Instructions: Rotator Cuff Injury (ED) Additional Instructions: Ibuprofen 200mg over the counter tablets, take 4 tablets three times a day with food. Lortab 5/325, one every 4 hours as needed for pain. Apply ice 20 minutes every 1-2 hours while awake. Use a sling to rest the arm/shoulder. Rest the injured area, keep it elevated while at rest. Begin gentle range of motion exercises. Follow-up with primary care or orthopedic surgeon in the next 7-10 days. Problem Qualifiers Primary Impression: Rotator cuff injury Encounter type: initial encounter Laterality: left Qualified Codes: S46.002A - Unspecified injury of muscle(s) and tendon(s) of the rotator cuff of left shoulder, initial encounter COLLIN JONES MD May 26, 2018 09:41
--- NOTE | 2018-05-26 10:20 | RADIOLOGY IMAGING REPORT ---
FACILITY: [facility] - [place] PATIENT NAME: Mary Willis : 1970 MR: [id number] V: [id number] EXAM DATE: ORDERING PHYSICIAN: COLLIN JONES TECHNOLOGIST: Location: Patient: Mary Willis : 1970 Visit/Account:[id number] Date of Sevice: 05/26/2018 EXAMINATION: Left shoulder, 3 views 05/26/2018 9:21 AM HISTORY: Shoulder and neck pain. Arm numbness. COMPARISON: 06/13/2017 FINDINGS: Cortical thickening along the distal shaft of the clavicle is unchanged back to 10/02/2015 suggestive of old injury. Acromioclavicular articulation is normal. Subacromial joint space is wel l-preserved and glenohumeral articulations negative. No acute bony finding in the shoulder. IMPRESSION: No acute abnormality. Likely old healed distal left clavicular fracture. Report Dictated By: Jesus Aguiar MD at 05/26/2018 10:13 AM Report E-Signed By: Jesus Aguiar MD at 05/26/2018 10:17 AM WSN:[id number]
[2018-05-26 10:30] VITALS: BP 106/71
[2018-05-26] MEDS ORDERED: LOR5/325 PO (11:45)
== END 2018-05-26 11:27 | disposition home or self-care (01) ==
LOC: ER 08:58
DX: S46.002A Unspecified injury of muscle(s) and tendon(s) of the rotator cuff of left shoulder, initial encounter (principal)
CPT/HCPCS: 99283; A4565

== ENCOUNTER 2018-09-29 18:13 | Emergency (ER) | payer SELFPAY ==
[~2018-09-29 18:13] MED LIST changes: -HYDR-4309 PO; +HYDR-653 PO; -METR-159 PO; +METR250T8 PO
--- NOTE | 2018-09-29 19:14 | ER Report ---
History and Physical Time Seen By MD: 19:14 Hx. of Stated Complaint: PT REPORTS SWELLING AND PAIN IN LEFT LEG FOR OVER A YEAR. PT HAS SEEN ORTHO FOR IT. HPI/ROS CHIEF COMPLAINT: Left knee pain HISTORY OF PRESENT ILLNESS: This is a 48-year-old female presents to the emergency department for left knee pain. Patient states that she's had left knee and leg pain for roughly 1 year, has been seen and evaluated by several orthopedists. She is in physical therapy. She states however she's had increased knee pain and swelling in her left leg for about one month. No other injuries that she can recall. She does state that she hears "grinding and popping in the left knee". The patient has no other complaints. REVIEW OF SYSTEMS: Respiratory: [No cough, no dyspnea.] Cardiovascular: [No chest pain, no palpitations.] Gastrointestinal: [No vomiting, no abdominal pain.] Musculoskeletal: [No back pain.] Allergies: Coded Allergies: aspirin (Verified Adverse Reaction, Mild, NOSEBLEEDS, 09/29/18) latex (Verified Adverse Reaction, Mild, 09/29/18) Uncoded Allergies: MUSHROOM (Allergy, Severe, SWELLING, RESP DISTRESS, 05/23/12) Home Meds Active Scripts Albuterol Sulfate 0.083% (ALBUTEROL SULFATE 0.083%) 2.5 Mg/3 Ml Vial.neb, 2.5 MG INH Q4H PRN for WHEEZING, #1 BOX 0 Refills Prov:JACK GREY MD 09/20/17 Discontinued Reported Medications Pseudoephedrine Hcl (SUDAFED 12 HOUR) 120 Mg Tablet.er, 120 MG PO PRN for CONGESTION 02/05/18 Ibuprofen (IBUPROFEN) 800 Mg Tablet, 1 TAB PO Q8H for PAIN, TAB 02/05/18 Discontinued Scripts Hydrocodone Bit/Acetaminophen (HYDROCODON-ACETAMINOPHEN 5-325) 1 Each Tablet, 1 EACH PO Q4H PRN for PAIN, #8 TAB 0 Refills Prov:COLLIN JONES MD 05/26/18 Past Medical/Surgical History Patient has a past medical surgical history of wearing glasses, occasionally has headaches, asthma, bladder disease, 2, GERD, right wrist injury, toe fracture, left knee pain. Hx Smoking: Yes Smoking Status: Former Smoker Exposure to Second Hand Smoke?: No Hx Substance Use Disorder: No Hx Alcohol Use: Yes (OCC) Constitutional Vital Sign - Last 24 Hours 09/29/18 09/29/18 09/29/18 09/29/18 19:08 19:08 19:13 19:28 Temp 97.7 Pulse 99 103 82 Resp 14 B/P (MAP) 98/80 (86) 98/80 Pulse Ox 93 94 93 O2 Delivery Room Air 09/29/18 09/29/18 20:30 21:04 Pulse 84 79 Resp 16 B/P (MAP) 114/73 (87) Pulse Ox 93 92 O2 Delivery Room Air Physical Exam General Appearance: The patient is alert, has no immediate need for airway protection and no current signs of toxicity. Eyes: Pupils equal and round no injection. Respiratory: Chest is non tender, lungs are clear to auscultation. Cardiac: regular rate and rhythm. Gastrointestinal: Abdomen is soft and non tender, no masses, bowel sounds norm al. Musculoskeletal: Neck: Neck is supple and non tender. Extremities left anterior knee pain with palpation. No appreciable swelling of the left leg when compared to the right leg. Pulses are palpable bilaterally and equal. Skin: No rashes or lesions. DIFFERENTIAL DIAGNOSIS: After history and physical exam differential diagnosis was considered for DVT, chronic knee pain, arthritis and lymphedema. Medical Decision Making EKG/Imaging Imaging Location: [facility] Patient: Mary Willis : 1970 Visit/Account:[id number] Date of Sevice: 09/29/2018 EXAMINATION: Left knee 4 views HISTORY: Knee pain. COMPARISON: 01/15/2017. FINDINGS: Bones of the left knee demonstrate normal alignment. No evidence of fracture or dislocation. Stable mild medial compartment narrowing. The lateral joint space is preserved. Soft tissues are radiographically unremarkable. No visualized knee joint effusion. IMPRESSION: 1. No acute osseous findings at the left knee. 2. Mild medial compartment narrowing appears stable. Report Dictated By: Zac Shah MD at 09/29/2018 8:01 PM Report E-Signed By: Zac Shah MD at 09/29/2018 8:03 PM WSN:[id number] Location: [facility] Patient: Mary Willis : 1970 Visit/Account:[id number] Date of Sevice: 09/29/2018 EXAMINATION: VENOUS DOPP LOW LEFT EXTREMITY COMPARISON: 01/20/2017. HISTORY: left knee pain, calf pain and increased size FINDINGS: Standard left lower extremity Doppler ultrasound with color flow and spectral analysis is performed. The common femoral, femoral, and popliteal veins are widely patent and compress appropriately. The visualized calf veins and the proximal greater saphenous vein are patent. No popliteal fluid collection. IMPRESSION: No left lower extremity deep venous thrombosis. Report Dictated By: Grzegorz Mcmahon MD at 09/29/2018 8:43 PM Report E-Signed By: Grzegorz Mcmahon MD at 09/29/2018 8:45 PM WSN:[id number] ED Course/Re-evaluation ED Course On the patient was admitted to a room. A history of physical or pain. Differential diagnoses were considered. An x-ray of the left knee was negative for any acute findings. A venous ultrasound of the left leg was negative for a DVT. I reviewed the results with the patient. I did [facility] as well as physical therapy I did send the patient home with a prescription for PT, I recommended following up with her primary care provider within one week, patient was agreeable and discharged home. Decision to Disposition Date: Sep 29, 2018 Decision to Disposition Time: 20:53 Depart Departure Latest Vital Signs Vital Signs Date Time Temp Pulse Resp B/P (MAP) Pulse Ox O2 Delivery O2 Flow Rate FiO2 09/29/18 21:04 79 16 114/73 (87) 92 Room Air 09/29/18 19:08 97.7 Impression: Primary Impression: Left leg pain Condition: Improved Disposition: HOME OR SELF-CARE Referrals: TITI MATSON PA-C (PCP) 1 Week [facility] Patient Instructions: Knee Pain (ED), Leg Pain (ED) Additional Instructions: There was no sign of a blood clot in your leg today. The x-ray of your knee was negative for any acute findings. I would however recommend following up with a physical therapist to see if they can help with the discomfort and range of motion her left leg and your knee. I would also recommend following up with your primary care provider within one week for reevaluation. Be sure to drink plenty of water. Get plenty of rest. Elevate sure left leg as much as possible when you're not walking around, this may help with some of the swelling and discomfort. Return to the ER for any concerns or worsening symptoms. RIGO MORRIS OBSTETRICAL NURSE-BC Sep 29, 2018 19:14
--- NOTE | 2018-09-29 20:06 | RADIOLOGY IMAGING REPORT ---
FACILITY: [facility] - [place] PATIENT NAME: Mary Willis : 1970 MR: [id number] V: [id number] EXAM DATE: ORDERING PHYSICIAN: RIGO MORRIS TECHNOLOGIST: Location: [facility] Patient: Mary Willis : 1970 Visit/Account:[id number] Date of Sevice: 09/29/2018 EXAMINATION: Left knee 4 views HISTORY: Knee pain. COMPARISON: 01/15/2017. FINDINGS: Bones of the left knee demonstrate normal alignment. No evidence of fracture or dislocation. Stable m ild medial compartment narrowing. The lateral joint space is preserved. Soft tissues are radiographically unremarkable. No visualized knee joint effusion. IMPRESSION: 1. No acute osseous findings at the left knee. 2. Mild medial compartment narrowing appears stable. Report Dictated By: Zac Shah MD at 09/29/2018 8:01 PM Report E-Signed By: Zac Shah MD at 09/29/2018 8:03 PM WSN:[id number]
--- NOTE | 2018-09-29 20:48 | RADIOLOGY IMAGING REPORT ---
FACILITY: [facility] PATIENT NAME: Mary Willis : 1970 MR: [id number] V: [id number] EXAM DATE: ORDERING PHYSICIAN: RIGO MORRIS TECHNOLOGIST: Location: [facility] Patient: Mary Willis : 1970 Visit/Account:[id number] Date of Sevice: 09/29/2018 EXAMINATION: VENOUS DOPP LOW LEFT EXTREMITY COMPARISON: 01/20/2017. HISTORY: left knee pain, calf pain and increased size FINDINGS: Standard left lower extremity Doppler ultrasound with color flow and spectral analysis is p erformed. The common femoral, femoral, and popliteal veins are widely patent and compress appropriately. The v isualized calf veins and the proximal greater saphenous vein are patent. No popliteal fluid collection. IMPRESSION: No left lower extremity deep venous thrombosis. Report Dictated By: Grzegorz Mcmahon MD at 09/29/2018 8:43 PM Report E-Signed By: Grzegorz Mcmahon MD at 09/29/2018 8:45 PM WSN:[id number]
[2018-09-29 21:04] VITALS: BP 114/73
== END 2018-09-29 21:10 | disposition home or self-care (01) ==
LOC: ER 18:20
DX: M79.605 Pain in left leg (principal)
CPT/HCPCS: 73564; 99284

== ENCOUNTER 2019-06-19 21:27 | Emergency (ER) | payer SELFPAY ==
[2019-06-19] MEDS ORDERED: NS(*) 0.9% 1000 ML BAG 1,000 ML IV ONE ×2 (21:50→22:55)
[2019-06-19 22:21] LABS: PLATELET COUNT, AUTOMATED 277 K/uL (150-450)
--- NOTE | 2019-06-19 22:47 | ER Report ---
History and Physical Time Seen By MD: 21:38 Hx. of Stated Complaint: DIZZINESS BEGAN WEDNESDAY. TODAY IT GOT SO BAD SHE COULDN'T GO TO WORK. GETS WORSE WHEN SHE STANDS OR MOVES FAST HPI/ROS CHIEF COMPLAINT: Lightheadedness HISTORY OF PRESENT ILLNESS: 49-year-old female awoke this morning feeling lightheaded. She states she felt dizzy as well, though states that this sensation was the feeling that she was going to pass out, rather than vertigo. Patient states that this has been generally present throughout the day. It is sometimes worse upon standing or certain positions. She has not had similar symptoms in the past. She has no headache. She has no blurred vision. She has noticed sore throat, tinnitus, earache. She has no chest pain or difficulty breathing. She has had occasional nausea today. She has no chest pain. She has had no palpitations. She has had no abdominal pain. No diarrhea or constipation. She denies UTI symptoms. No vaginal bleeding. Last menstrual period was one year ago. Chronic left knee pain and swelling behind left knee without clear diagnosis. This continues today that was not worse than normal. No recent travel. No change in by mouth intake, activity. She denies medications, tobacco, drug use, supplements. She rarely drinks alcohol. REVIEW OF SYSTEMS: Constitutional: No fever, no chills. Eyes: No discharge. ENT: No sore throat. Cardiovascular: No chest pain, no palpitations. Respiratory: No cough, no shortness of breath. Gastrointestinal: No abdominal pain, no vomiting. Genitourinary: No hematuria. Musculoskeletal: No back pain. Skin: No rashes. Neurological: No headache. Remainder of the 14 system rev: Yes Allergies: Coded Allergies: aspirin (Verified Adverse Reaction, Mild, NOSEBLEEDS, 06/19/19) latex (Verified Adverse Reaction, Mild, 06/19/19) Uncoded Allergies: MUSHROOM (Allergy, Severe, SWELLING, RESP DISTRESS, 05/23/12) Home Meds Active Scripts Albuterol Sulfate 0.083% (ALBUTEROL SULFATE 0.083%) 2.5 Mg/3 Ml Vial.neb, 2.5 MG INH Q4H PRN for WHEEZING, #1 BOX 0 Refills Prov:JACK GREY MD 09/20/17 Reviewed Nurses Notes: Yes Hx Smoking: Yes Smoking Status: Former Smoker Exposure to Second Hand Smoke?: No Hx Substance Use Disorder: No Hx Alcohol Use: Yes (OCC) Constitutional Vital Sign - Last 24 Hours 06/19/19 06/19/19 06/19/19 06/19/19 21:29 21:35 21:42 21:57 Temp 98.2 Pulse 75 72 70 Resp 14 13 16 B/P (MAP) 115/56 (75) 115/56 116/59 (78) Pulse Ox 92 91 94 O2 Delivery Room Air 06/19/19 06/19/19 06/19/19 06/19/19 22:00 22:03 22:12 22:27 Pulse 69 71 Resp 10 B/P (MAP) 115/58 (77) Pulse Ox 93 95 O2 Flow Rate 2.0 06/19/19 06/19/19 06/19/19 06/19/19 22:30 22:42 22:57 23:02 Pulse 69 67 ??? Resp 12 12 B/P (MAP) 124/57 (79) Pulse Ox 95 96 06/19/19 06/19/19 06/19/19 06/19/19 23:17 23:28 23:30 23:32 Pulse 70 72 Resp 17 20 B/P (MAP) 132/71 (91) 135/79 (97) Pulse Ox 99 96 06/19/19 23:47 Pulse 68 Resp 13 Pulse Ox 96 Intake and Output 06/19/19 06/19/19 06/20/19 15:03 23:03 07:03 Intake Total 1000 ml 1000 ml Balance 1000 ml 1000 ml Physical Exam General Appearance: The patient is alert, has no immediate need for airway protection and no signs of toxicity. Eyes: Pupils equal and round no pallor or injection. ENT, Mouth: Mucous membranes are moist. Respiratory: There are no retractions, lungs are clear to auscultation. Cardiovascular: Regular rate and rhythm. no m/r/g Gastrointestinal: Abdomen is soft and non tender, no masses, bowel sounds normal. Neurological: alert, moves all ext, no gross focal deficits Skin: Warm and dry, no rashes. Musculoskeletal: Neck is supple non tender. Extremities have full range of motion; pt has left popliteal fullness, ttp throughout left knee, calf, without palpable cords, without edema. TM's clear no lymphadenopathy DIFFERENTIAL DIAGNOSIS: After history and physical exam differential diagnosis was considered for arrhythmia, uti or other infection/sepsis, electrolyate abnormality, VTE, acs, or other emergent cause of symptoms. Medical Decision Making Data Points Result Diagram: 06/19/19213506/19/192135 Laboratory Hematology Test 06/19/19 21:36 White Blood Count 7.7 k/uL (4.5-11.0) Red Blood Count 5.08 M/uL (4.17-5.56) Hemoglobin 14.8 g/dL (12.0-16.0) Hematocrit 43.7 % (34.0-47.0) Mean Corpuscular Volume 86.1 fL (80.0-96.0) Mean Corpuscular Hemoglobin 29.2 pg (26.0-33.0) Mean Corpuscular Hemoglobin Concent 33.9 g/dL (32.0-36.0) Red Cell Distribution Width 13.7 % (11.5-14.5) Platelet Count 277 K/uL (150-450) Mean Platelet Volume 9.1 fL (7.2-11.1) Neutrophils (%) (Auto) 67.0 % (39.4-72.5) Lymphocytes (%) (Auto) 24.1 % (17.6-49.6) Monocytes (%) (Auto) 5.0 % (4.1-12.4) Eosinophils (%) (Auto) 3.3 % (0.4-6.7) Basophils (%) (Auto) 0.6 % (0.3-1.4) Nucleated RBC Relative Count (auto) 0.1 /100WBC Neutrophils # (Auto) 5.1 K/uL (2.0-7.4) Lymphocytes # (Auto) 1.8 K/uL (1.3-3.6) Monocytes # (Auto) 0.4 K/uL (0.3-1.0) Eosinophils # (Auto) 0.3 K/uL (0.0-0.5) Basophils # (Auto) 0.0 K/uL (0.0-0.1) Nucleated RBC Absolute Count (auto) 0.01 K/uL Chemistry Test 06/19/19 21:36 06/19/19 22:17 Sodium Level 138 mmol/L (137-145) Potassium Level 3.6 mmol/L (3.5-5.0) Chloride Level 101 mmol/L (98-107) Carbon Dioxide Level 30 mmol/L (22-31) Blood Urea Nitrogen 15 mg/dl (7-18) Creatinine 0.60 mg/dl (0.52-1.04) Glomerular Filtration Rate Calc > 60.0 Random Glucose 157 mg/dl (75-110) Calcium Level 8.9 mg/dl (8.4-10.2) Magnesium Level 2.0 mg/dl (1.7-2.2) Total Bilirubin 0.4 mg/dl (0.2-1.3) Aspartate Amino Transf (AST/SGOT) 28 U/L (0-35) Alanine Aminotransferase (ALT/SGPT) 35 U/L (0-56) Alkaline Phosphatase 94 U/L (0-126) Troponin I < 0.012 ng/ml Total Protein 7.5 g/dl (6.3-8.2) Albumin 4.1 g/dl (3.5-5.0) Human Chorionic Gonadotropin, Qual Negative (NEGATIVE) Lactate 1.1 mmol/L (0.7-2.1) Coagulation Test 06/19/19 21:36 D-Dimer Quantitative (PE/DVT) 0.54 ug/ml (0-0.50) Urinalysis Test 06/19/19 21:36 Urine Color Yellow Urine Clarity Slightly-cloudy Urine pH 6.0 pH (4.8-9.5) Urine Specific [place] 1.027 Urine Protein Negative mg/dL (NEGATIVE) Urine Glucose (UA) Negative mg/dL (NEGATIVE) Urine Ketones Negative mg/dL (NEGATIVE) Urine Blood Negative (NEGATIVE) Urine Nitrite Negative (NEGATIVE) Urine Bilirubin Negative (NEGATIVE) Urine Urobilinogen 4.0 mg/dL (0.2-1.9) Urine Leukocyte Esterase Negative (NEGATIVE) Urine RBC 8 /HPF (0-2/HPF) Urine WBC 6 /HPF (0-5/HPF) Urine Squamous Epithelial Cells Many /LPF (</=FEW) Urine Bacteria Few /HPF (NONE-FEW) Urine Mucus Few /HPF (NONE-FEW) EKG/Imaging EKG Interpretation 12 lead EKG: Rhythm: normal sinus rhythm [place]: normal QRS: normal ST segments: flattened T V3 Borderline prolonged qt Monitor Interpretation: Normal Sinus Rhythm ED Course/Re-evaluation ED Course 49 y/o f presents with lightheadedness x 1 d without prior similar symptoms. Pt without other focal hx; vitals remarkable for borderline 02 sat; exam unremarkable. Labs without e/o uti, electrolyte abnormality, anemia, sgs infection. Dimer elevated so will CT to r/o PE. Hyperglycemia without e/o diabetic emergency; discussed with pt who understands importance of f/u for re- evaluation. Decision to Disposition Date: Jun 20, 2019 Decision to Disposition Time: 00:07 Depart Departure Latest Vital Signs Vital Signs Date Time Temp Pulse Resp B/P (MAP) Pulse Ox O2 Delivery O2 Flow Rate FiO2 06/19/19 23:47 68 13 96 06/19/19 23:30 135/79 (97) 06/19/19 22:03 2.0 06/19/19 21:35 98.2 Room Air Impression: Primary Impression: Lightheadedness Additional Impression: Hyperglycemia Condition: Improved Disposition: HOME OR SELF-CARE Referrals: TITI MATSON PA-C (PCP) 2 Days Patient Instructions: Lightheadedness (ED) Additional Instructions: As we discussed, I do not find a clear cause for your symptoms. While you are now feeling better, if you worsen or have new or concerning symptoms including shortness of breath, chest pain, or any other concerns, please return for further evaluation. Your blood sugar was high (157). This may be due to the illness that caused your symptoms, but I recommend your primary doctor evaluates you to rule out diabetes. Please follow up this week for further evaluation. Problem Qualifiers NIKOLAS DWYER MD Jun 19, 2019 22:47
--- NOTE | 2019-06-19 22:51 | RADIOLOGY IMAGING REPORT ---
FACILITY: [facility] PATIENT NAME: Mary Willis : 1970 MR: [id number] V: [id number] EXAM DATE: ORDERING PHYSICIAN: NIKOLAS DWYER TECHNOLOGIST: Location: [facility] Patient: Mary Willis : 1970 Visit/Account:[id number] Date of Sevice: 06/19/2019 Examination: CHEST PA LAT Comparison: 09/19/2017 and earlier. History: dyspnea Findings: Cardiac and hilar contour size is within normal limits. No consolidation, nodule, or peribr onchial inflammation. No pneumothorax, edema, or effusion. Cholecystectomy clips. Osseous structures are intact. IMPRESSION: No findings of acute cardiopulmonary disease. Report Dictated By: Grzegorz Mcmahon MD at 06/19/2019 10:42 PM Report E-Signed By: Grzegorz Mcmahon MD at 06/19/2019 10:43 PM WSN:[id number]
[2019-06-19] MEDS ORDERED: IOPAMIDOL 76% 100 ML INFUS BTL 100 ML ONE (23:03)
[2019-06-19] MEDS ORDERED: NS(*) 0.9% 50 ML BAG 50 ML ONE (23:03)
[2019-06-19 23:30] VITALS: BP 135/79
--- NOTE | 2019-06-19 23:40 | EKG ---
FACILITY: [facility] PATIENT NAME: HEATHER ONEILL : [id number] MR: [id number] V: [id number] EXAM DATE: ORDERING PHYSICIAN: NIKOLAS DWYER TECHNOLOGIST: TAYA Test Reason : NEURO Blood Pressure : / mmHG Vent. Rate : 068 BPM Atrial Rate : 068 BPM P-R Int : 142 ms QRS Dur : 074 ms QT Int : 444 ms P-R-T Axes : 049 060 067 degrees QTc Int : 472 ms Normal sinus rhythm Nonspecific T wave abnormality Prolonged QT Abnormal ECG When compared with ECG of 06-JAN-2016 11:16, Nonspecific T wave abnormality no longer evident in Inferior leads Confirmed by JAE DAVILA ([id number]) on 06/20/2019 6:48:52 AM Referred By: Confirmed By:JAE DAVILA
--- NOTE | 2019-06-20 | RADIOLOGY IMAGING REPORT ---
[place] [facility] [place] Mary [place] : 1970 MR: [id number] V: [id number] EXAM DATE: ORDERING PHYSICIAN: NIKOLAS DWYER TECHNOLOGIST: Location: [facility] Patient: Mary Willis : 1970 Visit/Account:[id number] Date of Sevice: 06/19/2019 CT CTA CHEST W & W/O CON HISTORY: dyspnea, elevated dimer One of the following dose optimization techniques was utilized in the performance of this exam: Autom ated exposure control; adjustment of the mA and/or kV according to the patient's size; or use of an i terative reconstruction technique. Specific details can be referenced in the facility's radiology C T exam operational policy. TECHNIQUE: CTA chest with contrast. 3D coronal slab MIPs and 2D reconstructions in the coronal and sagittal planes were also created. CONTRAST: 75 cc of Isovue-370 COMPARISON: None. FINDINGS: Vessels: Well-opacified pulmonary arteries bilaterally. No intraluminal filling defects noted in eit her pulmonary arterial system. Mild thoracic abdominal aortic dilatation measuring approximately 3.5 cm. No dissection. Visualized brachycephalic vessels well-maintained. Heart and pericardium: Negative Mediastinum and hilum: Negative. Lymph nodes: Negative. Lungs/pleura: Negative. Visualized upper abdomen: Status post cholecystectomy. No liver lesions. Visualized spleen adrenal g lands and pancreas are unremarkable. Lower neck: Negative. Bones/soft tissues: Negative. IMPRESSION: Negative CTA for PE. Report Dictated By: Andrez Chong MD at 06/19/2019 11:44 PM Report E-Signed By: Andrez Chong MD at 06/19/2019 11:52 PM WSN:[id number]
== END 2019-06-20 00:12 | disposition home or self-care (01) ==
LOC: ER 21:35
DX: R42 Dizziness and giddiness (principal); R73.9 Hyperglycemia, unspecified
CPT/HCPCS: 71046; 71275; 81001; 83605; 83735; 84484; 84703; 85025; 85379; 93005; 96360; 96361; 99284; J7030; J7050; Q9967; 82040; 82247; 82310; 82374; 82435; 82565; 82947; 84075; 84132; 84155; 84295; 84450; 84460; 84520